=== PATIENT | male | born 1955 | race Caucasian/White ===

== ENCOUNTER 2018-11-26 11:59 | Day surgery (SDC) | payer OTHER, MEDICARE ==
[~2018-11-26 11:59] MED LIST: PROPOFOL INJ 200 MG/20 ML VIAL IV ONE
[2018-11-26] MEDS ORDERED: DIPHENHYDRAMINE HCL 50 MG/ML VIAL IV PRN (13:43)
--- NOTE | 2018-11-26 14:11 | Operative Report ---
Operative Report DATE OF SURGERY: 11/26/18 Operative Report: The risks benefits and alternatives of the procedure explained to the patient in detail and informed consent is obtained.A GIF Olympus video scope was inserted into the patient's mouth and hypopharynx, the esophagus is identified intubated and insufflated ,the scope was then advanced through the esophagus stomach and duodenum ,retroflexion maneuver is done ,the esophagus stomach and first and second portions of the duodenum examined. PREOPERATIVE DIAGNOSIS: Dysphagia POSTOPERATIVE DIAGNOSIS: No intraluminal narrowing of the esophagus. Patient does have a gastric anastomosis no ulceration is noted biopsies are obtained ephedrine loop noted to be normal will need to have upper GI series for evaluation of patency. OPERATION: EGD with biopsy SURGEON: VENESSA PEÑA ANESTHESIA: LMAC TISSUE REMOVED OR ALTERED: As noted above. COMPLICATIONS: None. ESTIMATED BLOOD LOSS: None. INTRAOPERATIVE FINDINGS: As noted above. PROCEDURE: Patient tolerated the procedure well. No immediate postprocedure complications are noted. Patient is discharged in good condition. Discharge date 11/26/2018. Discharge diet: Regular. Discharge activity: Regular. 2 to 3-week follow-up to discuss findings. Patient is instructed to call the office or proceed to the emergency room should there be any further problems or questions. Wait on the pathology.
[2018-11-26 15:58] VITALS: BP 120/85
== END 2018-11-26 14:50 | disposition home or self-care (01) ==
LOC: OROUT 11:59
PROVIDERS: ATTEND Internal Medicine Gastroenterology
DX: K20.9 Esophagitis, unspecified (principal); K29.50 Unspecified chronic gastritis without bleeding; Z87.891 Personal history of nicotine dependence; R63.4 Abnormal weight loss; I10 Essential (primary) hypertension; I25.2 Old myocardial infarction
CPT/HCPCS: 43239; 88305 ×2; 88312 ×2; 00731; J2704; 731

== ENCOUNTER 2019-09-17 07:33 | Day surgery (SDC) | payer OTHER, MEDICARE ==
[2019-09-11 14:30] LABS: HEMATOCRIT 40.4 % (37.9-51.0); HEMOGLOBIN 13.8 g/dL (13.5-17.0); MEAN CORPUSCULAR HEMOGLOBIN 35.7 pg (27.0-33.4); MEAN CORPUSCULAR HGB CONC 34.3 g/dL (32.0-36.0); MEAN CORPUSCULAR VOLUME 104 fl (80-97); PLATELET COUNT 427 10^3/uL (150-450); RED BLOOD COUNT 3.87 10^6/uL (4.35-5.55); RED CELL DISTRIBUTION WIDTH 13.6 % (11.5-14.0); WHITE BLOOD COUNT 10.4 10^3/uL (4.0-10.5)
[2019-09-11 14:59] LABS: ANION GAP 9 (5-19); BLOOD UREA NITROGEN 6 mg/dL (7-20); CALCIUM 8.9 mg/dL (8.4-10.2); CARBON DIOXIDE 19 mmol/L (22-30); CHLORIDE 104 mmol/L (98-107); GLUCOSE 72 mg/dL (75-110)
--- NOTE | 2019-09-11 17:57 | EKG REPORT ---
SEVERITY:- ABNORMAL ECG - SINUS RHYTHM PROBABLE LEFT ATRIAL ABNORMALITY CONSIDER ANTEROSEPTAL INFARCT : Confirmed by: Sarah Gamez MD 11-Sep-2019 17:56:33
[2019-09-17] MEDS ORDERED: PROPOFOL INJ 200 MG/20 ML VIAL IV ONE (07:41)
--- NOTE | 2019-09-17 10:15 | Operative Report ---
Operative Report DATE OF SURGERY: 09/17/19 Operative Report: The risk, benefits and alternatives of the procedure including the risk of bleeding, perforation requiring surgery have been explained to the patient in detail and informed consent has been obtained. Patient is placed in left, lateral decubital position. Timeout was called. Propofol medication is administered. Rectal examination is done which did not reveal any masses, tears or fissures. An Olympus videoscope was introduced into the patient's rectum. Scope was then carefully advanced all the way to the cecum. Cecum was identified by the usual anatomical landmarks including the ileocecal valve as well as the appendiceal office. Photodocumentation is obtained per scope was then sequentially pulled back via the various segments of the colon including the ascending colon, hepatic flexure, transverse colon, splenic flexure, descending colon finally into the rectosigmoid portions of the colon. Retroflexion maneuvers performed. PREOPERATIVE DIAGNOSIS: Weight loss, change of bowel habits rule out colorectal cancer POSTOPERATIVE DIAGNOSIS: Random right side colon biopsy. diverticulosis. Internal hemorrhoids. Rectal polyp removed via snare polypectomy and retrieved OPERATION: Colonoscopy with snare polypectomy. colonoscopy with biopsy SURGEON: VENESSA PEÑA ANESTHESIA: LMAC TISSUE REMOVED OR ALTERED: As noted above. COMPLICATIONS: None. INTRAOPERATIVE FINDINGS: As noted above. PROCEDURE: Patient tolerated the procedure well. No immediate postprocedure complications are noted. Patient is discharged in good condition. Discharge date 09/17/2019. Discharge diet: Regular. Discharge activity: Regular. 2 to 3-week follow-up to discuss findings. Patient is instructed to call the office or proceed to the emergency room should there be any further problems or questions. Wait on the pathology. 5-year surveillance
[2019-09-17 10:43] VITALS: BP 159/89
== END 2019-09-17 10:52 | disposition home or self-care (01) ==
LOC: END 07:33
PROVIDERS: ATTEND Internal Medicine Gastroenterology
DX: K57.30 Diverticulosis of large intestine without perforation or abscess without bleeding (principal); K64.8 Other hemorrhoids; K52.9 Noninfective gastroenteritis and colitis, unspecified; I25.10 Atherosclerotic heart disease of native coronary artery without angina pectoris; I10 Essential (primary) hypertension; Z85.118 Personal history of other malignant neoplasm of bronchus and lung; Z85.21 Personal history of malignant neoplasm of larynx
CPT/HCPCS: 45380; 45385; 93005; 36415; 85027; 87635; 80048; 88305 ×2; 93010; J2704; C9803; 811